=== PATIENT | female | born 1975 | race Two or more races ===

== ENCOUNTER 2017-07-19 21:17 | Emergency (ER) | payer BC ==
[~2017-07-19] VITALS: Ht 152.4 cm; Wt 61.7 kg
== END 2017-07-20 03:19 | disposition home or self-care (01) ==
LOC: ED 21:17
DX: O02.1 Missed abortion (principal)
CPT/HCPCS: 36415; 76801; 76817; 85025; 86900; 86901; 99284

== ENCOUNTER 2021-07-13 06:02 | Emergency (ER) | payer BC ==
[~2021-07-13] VITALS: Ht 152.4 cm; Wt 56.8 kg
[2021-07-13] MEDS ORDERED: CEPHALEXIN500 MG PO (06:25)
[2021-07-13] MEDS ORDERED: HYDROCODON-ACE1 EA10 PO (06:25)
== END 2021-07-13 07:03 | disposition home or self-care (01) ==
LOC: ED 06:02
DX: K02.9 Dental caries, unspecified (principal)
CPT/HCPCS: 96372; 99282; J1885

== ENCOUNTER 2024-08-16 20:37 | Emergency (ER) | payer OTHER ==
[~2024-08-16] VITALS: Ht 152.4 cm; Wt 57.0 kg
[~2024-08-16 20:37] MED LIST: CEPHALEXIN500 MG PO; HYDROCODON-ACE1 EA10 PO
[2024-08-16 23:13] LABS: BASOPHILS 1.2 % (0-2); EOSINOPHILS 2.9 % (0-6); HEMATOCRIT 41.5 % (35.0-50.0); HEMOGLOBIN 14.3 g/dL (12.0-18.0); MCH 29.5 (27-36); MCHC 34.4 g/dl (30-36); MCV 85.7 fl (81-99); MONOCYTES 6.5 % (0-12); NEUTROPHILS 56.4 % (39-80); PLATELET COUNT 245 K/uL (140-440); RBC 4.84 M/ul (4.3-5.7); RDW 13.4 (10.5-15.0)
[2024-08-16 23:30] LABS: ALBUMIN 4.2 g/dL (3.4-5.0); ALBUMIN/GLOBULIN RATIO 1.11 (1.1-2.4); ALKALINE PHOSPHATASE 179 U/L (46-116); ALT (SGPT) 45 U/L (14-59); ANION GAP 13.8 (7-21); AST (SGOT) 18 U/L (15-37); BILIRUBIN, TOTAL 0.3 mg/dL (0.2-1.0); BUN/CREATININE RATIO 18.46 (6.0-28.6); CALCIUM 9.2 mg/dL (8.5-10.1); CARBON DIOXIDE 29 mmol/L (21-32); CHLORIDE 104 mmol/L (98-107); CREATININE, SERUM 0.65 mg/dL (0.55-1.02); GLOMERULAR FILTRATION RATE,EST 107 mL/min (>60); MAGNESIUM 2.3 mg/dL (1.8-2.4); POTASSIUM 3.8 mmol/L (3.5-5.1); UREA NITROGEN 12 mg/dL (7-18)
[2024-08-17 00:30] LABS: BILIRUBIN, URINE NEGATIVE (negative); BLOOD/HGB, URINE NEGATIVE (Negative); KETONE, URINE NEGATIVE (Negative); LEUK ESTERASE, URINE NEGATIVE (negative); NITRITE, URINE NEGATIVE (negative)
[2024-08-17] MEDS ORDERED: LACTATED RINGER'S 1,000 ML IV ONE (00:30)
[2024-08-17] MEDS ORDERED: ondansetron HCL 4 MG/2 ML VIAL IV ONE (00:30)
[2024-08-17] MEDS ORDERED: MECLIZINE HCL 25 MG TAB PO ONE (00:30)
[2024-08-17 00:44] LABS: AMPHETAMINES, URINE NEGATIVE (NEGATIVE); BARBITURATES, URINE NEGATIVE (NEGATIVE); BENZODIAZEPINE, URINE NEGATIVE (NEGATIVE); BUPRENORPHINE, URINE NEGATIVE (NEGATIVE); CANNABINOID, URINE NEGATIVE (NEGATIVE); COCAINE, URINE NEGATIVE (NEGATIVE); ECSTASY, URINE NEGATIVE (NEGATIVE); FENTANYL, URINE NEGATIVE (NEGATIVE); METHADONE, URINE NEGATIVE (NEGATIVE); OPIATES, URINE NEGATIVE (NEGATIVE); OXYCODONE, URINE NEGATIVE (NEGATIVE); PHENCYCLIDINE, URINE NEGATIVE (NEGATIVE)
[2024-08-17] MEDS ORDERED: MECLIZINE HCL25 MG PO (01:50)
[2024-08-17 02:20] VITALS: BP 127/83
--- NOTE | 2024-08-18 11:08 | EKG ---
[facility] [address] [facility] [place], [place] [address] Signed Normal sinus rhythm Normal ECG No previous ECGs available Confirmed by Lizzie Dumas MD ([id number]) on 08/18/2024 11:08:00 AM Electronically Signed By: LIZZIE DUMSA MD 08/18/24 1108 PATIENT NAME: SYLVIE PERKINS Electrocardiogram DATE OF : 73 PHYSICIAN: LIZZIE DUMAS MD REPORT #: [id number] REPORT IS CONFIDENTIAL AND NOT TO BE RELEASED WITHOUT AUTHORIZATION
== END 2024-08-17 02:10 | disposition home or self-care (01) ==
LOC: ED 20:37
PROVIDERS: Internal Medicine
DX: H81.10 Benign paroxysmal vertigo, unspecified ear (principal)
CPT/HCPCS: 36415; 80053; 80307; 81003; 83735; 84484; 84703; 85025; 93005; 93010; 96374; 99284-25; A9270; J2405; J7121